=== PATIENT | male | born 1995 | race Native Hawaiian/Other Pacific Islander ===

== ENCOUNTER 2017-01-05 19:36 | Emergency (ER) | payer BC ==
[~2017-01-05] VITALS: Ht 182.9 cm; Wt 68.0 kg
[2017-01-05 19:45] VITALS: BP 124/61; TEMP 98.1
[2017-01-05] MEDS ORDERED: ADDERALL30 MG PO (19:53)
== END 2017-01-05 21:10 | disposition home or self-care (01) ==
LOC: ED 19:36
PROC: 0HQLXZZ Repair Left Lower Leg Skin, External Approach (ICD-10-PCS; principal; 2017-01-05)
DX: S81.012A Laceration without foreign body, left knee, initial encounter (principal); W29.3XXA Contact with powered garden and outdoor hand tools and machinery, initial encounter; Y92.098 Other place in other non-institutional residence as the place of occurrence of the external cause
CPT/HCPCS: 90715; 99283

== ENCOUNTER 2017-04-05 11:21 | Outpatient (CLI) | payer BC ==
[~2017-04-05 11:21] MED LIST: ADDERALL30 MG PO
== END 2017-04-05 19:21 | disposition home or self-care (01) ==
LOC: RAD 11:21
DX: M25.561 Pain in right knee (principal)

== ENCOUNTER 2021-03-23 14:54 | Outpatient (CLI) | payer OTHER ==
[2021-03-23 15:22] LABS: PLATELET COUNT 284 K/uL (142-355)
== END 2021-03-23 19:06 | disposition home or self-care (01) ==
LOC: CT 14:54
PROVIDERS: ATTEND Nurse Practitioner Family
DX: K92.1 Melena (principal); R10.9 Unspecified abdominal pain; R10.814 Left lower quadrant abdominal tenderness
CPT/HCPCS: 36415; 80053; 82150; 82272; 83690; 85027; Q9963